=== PATIENT | female | born 1990 | race Caucasian/White ===

== ENCOUNTER 2020-12-04 13:31 | Emergency (ER) | payer OTHER ==
[~2020-12-04] VITALS: Ht 167.6 cm; Wt 69.4 kg
--- NOTE | 2020-12-04 14:00 | NUR ---
Security called to molly pt for contraband. Sister Rubi at side. Pt cooperative and complies with plan of care.
[2020-12-04 14:23] LABS: BILIRUBIN,URINE Negative (NEGATIVE); COLOR,URINE YELLOW (YELLOW); LEUKOCYTE ESTERASE ,URINE Negative (NEGATIVE); NITRITE, URINE Negative (NEGATIVE); PROTEIN,URINE Negative (NEGATIVE); UGLUCOSE Negative (NEGATIVE); UROBILINOGEN,URINE 0.2 EU/dL (0.2)
[2020-12-04 14:43] LABS: BASOPHILS % (AUTO) 0.6 % (0.0-2.0); EOSINOPHILS % (AUTO) 1.6 % (0.0-6.0); HEMATOCRIT 41 % (33-45); HEMOGLOBIN 13.8 g/dL (11.5-14.8); LYMPHOCYTES # (AUTO) 1.5 /CMM (0.8-4.8); LYMPHOCYTES % (AUTO) 38.9 % (20.0-44.0); MEAN CORPUSCULAR HGB CONC 34 g/dl (31.0-36.0); MEAN CORPUSCULAR VOLUME 96 fL (82-100); MONOCYTES # (AUTO) 0.3 /CMM (0.1-1.30); MONOCYTES % (AUTO) 8.1 % (2.0-12.0); NEUTROPHILS % (AUTO) 50.8 % (43.0-81.0); PLATELET COUNT (AUTO) 230 /CMM (150-450); RED BLOOD CELL COUNT(AUTO) 4.25 MIL/uL (4.0-5.2)
[2020-12-04 14:48] LABS: CALCIUM, SERUM 8.7 mg/dL (8.5-10.1); CARBON DIOXIDE 27 mmol/L (21-32); CHLORIDE 105 mmol/L (98-107); GLUCOSE 87 mg/dL (74-106); POTASSIUM 3.9 mmol/L (3.5-5.1); SODIUM SERUM 140 mmol/L (136-145); UREA NITROGEN, BLOOD 12 mg/dL (7-18)
[2020-12-04 14:53] LABS: ALANINE AMINOTRANSFERASE 21 U/L (12-78); ALBUMIN 3.5 g/dL (3.4-5.0); ALCOHOL, BLOOD < 3 mg/dL (0-0); ALKALINE PHOSPHATASE 58 U/L (46-116); ASPARTATE AMINOTRANSFERASE 18 U/L (15-37); BILIRUBIN,DIRECT 0.1 mg/dL (0.0-0.2); BILIRUBIN,TOTAL 0.3 mg/dL (0.2-1.0); TOTAL PROTEIN, SERUM 7.6 g/dL (6.4-8.2)
[2020-12-04 14:54] LABS: ACETAMINOPHEN 0 ug/ml (10-30)
--- NOTE | 2020-12-04 15:09 | NUR ---
SW met with the patient and patient's sister. Patient is a 30 year-old female. Patient is alert and oriented x4. Patient was calm and cooperative throughout this assessment. Patient presents to [facility] ED with suicidal ideation to cut her wrist. Patient has visible cuts on her left wrist which she showed this SW. Patient reported to this SW that she has been having auditory hallucinations for the past few days stating to cut her wrist and kill herself. Patient reported to this SW that she has been diagnosed with Schizo-effective disorder and currently meets with her psychiatrist once a month with the last telehealth visit on 11/27. Patient informed this SW that she urgently called her psychiatrist this afternoon and they discussed voluntary psychiatric hospitalization. Patient reported to this SW that she was admitted voluntarily to [facility] approximately a year and a half ago and patient would like to return for further treatment. 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 Patient denies drug use. Patient reported the use of e-cigarettes daily. Patient is able to make needs known. Patient's speech was clear. Plan: ÁNGEL will refer the patient to [facility] per patient's request. ÁNGEL to fax clinicals to [facility] Intake . ÁNGEL will also notify Vladimir regarding this referral. ÁNGEL remains available for all needs regarding this patient.
--- NOTE | 2020-12-04 15:20 | NUR ---
ÁNGEL notified ED RN Cathryn that patient requires a COVID-19 rapid test for acceptance to [facility]. ED RN Cathryn in understanding will place order for COVID-19 rapid exam.
--- NOTE | 2020-12-04 16:14 | NUR ---
received a call from the lab regarding covid 19 result "negative".
--- NOTE | 2020-12-04 16:21 | NUR ---
ÁNGEL notified Vladimir that patient clinicals are pending as ED physician has not medically cleared the patient. Plan:ÁNGEL to inform ED staff of faxing clinicals when patient is medically cleared.
--- NOTE | 2020-12-04 16:33 | NUR ---
ÁNGEL spoke with ED RN Adeel regarding pending clinicals. ED Staff to fax clinicals once ED physician medically clears the patient.
--- NOTE | 2020-12-04 18:30 | NUR ---
Cooperative NO acute changes await medical clearance and transfer to [facility] facility
--- NOTE | 2020-12-04 21:01 | NUR ---
FACESHEET AND CLINCALS FAXED TO [facility].
--- NOTE | 2020-12-05 00:51 | NUR ---
[facility] called for test. will send results
--- NOTE | 2020-12-05 02:03 | NUR ---
PT ACCEPTED AT [facility] ACCEPTING MD MARTÍNEZ PT WILL GO TO UNIT 2 PHONE # FOR REPORT
--- NOTE | 2020-12-05 04:27 | NUR ---
CALLED [facility] SPOKE WITH ROHAN SHE SAID SHE WOULD CALL BACK IN 10 MINS WITH RUTHANN AND [facility]. TRIP #[id number].
--- NOTE | 2020-12-05 04:34 | NUR ---
MANUEL GARCIA FROM [facility]: [facility] ETA [id number]
--- NOTE | 2020-12-05 04:55 | NUR ---
REPORT GIVEN TO HILL CAM FROM [facility]
[2020-12-05 07:57] VITALS: BP 114/79
--- NOTE | 2020-12-05 07:58 | NUR ---
transfered to [facility] in stable condition.
== END 2020-12-05 08:00 ==
LOC: ER 13:37
DX: R45.851 Suicidal ideations (principal); F25.9 Schizoaffective disorder, unspecified; Z83.3 Family history of diabetes mellitus; Z81.8 Family history of other mental and behavioral disorders; Z20.822 Contact with and (suspected) exposure to COVID-19
CPT/HCPCS: 36415; 80048; 80076; 80299; 80307; 80320; 81003; 84703; 85025; 87426; 99285; C9803; G0480